=== PATIENT | female | born 1965 | race Caucasian/White ===

== ENCOUNTER 2023-06-11 08:52 | Emergency (ER) | payer OTHER, SELFPAY ==
[2023-06-11 08:59] VITALS: BP 194/105
--- NOTE | 2023-06-11 09:25 | ED.GENMED ---
History of Present Illness
General
Chief Complaint: Headache
Source: patient
Time Seen by Provider: 06/11/23 09:10
Travel History
Have you had any contact with someone who has COVID-19?: No
Do you have any symptoms of coronavirus? Fever > 100 degrees, chills, cough, shortness of breath, sore throat, loss of taste or smell, muscle aches, or headache?: No
History of Present Illness
History of Present Illness:
57-year-old female with past medical history of multiple sclerosis, hypertension, GERD presenting to the emergency department for evaluation of a global headache that began this past Sunday evening and Sunday when she states she was out at dinner
with her when she had a coughing spell that lasted for approximately 20 minutes (notes that she has gotten these types of coughing spells before which is likely attributed to her MS) but states following the coughing spell has had the
headache and has not resolved with Advil/Motrin which patient has been taking every 4-6 hours. Patient states she has never had a headache like this that has not gotten better with medications. She notes associated nausea and feels as if she has
brain fog as well. She notes the brain fog is often a MS symptom for her as well. She notes she saw her neurologist at [facility] about 2 months ago and everything was at her usual baseline and has an MRI scheduled for this coming September. Patient
does admit to a recent 'head cold' but had started feeling better over the last week. She denies any current fevers, chills, rigors, focal weakness or numbness, visual disturbances, neck pain or stiffness or any other concerns.
Past History
Past History
ED Past Medical History: GERD, HTN and Other (Multiple sclerosis)
ED Past Surgical History: None
Social History
Tobacco: Non-smoker
Alcohol: Occasional
Drug: None
Personal:
Living: with family
Employment: Employed
Review of Systems
Review of Systems
All Other Systems: ROS reviewed and negative except as documented in HPI and ROS
Phy Exam
Physical Exam
Physical Exam:
GENERAL: Alert , Appears uncomfortable and tearful
EYE: pupils equal and reactive, 3 mm bilateral, EOMI
NECK: Supple, no significant adenopathy., No meningismus
ENT: o/p clr, mmm.
CARDIAC: Regular rate and rhythm .
LUNGS: Clear breath sounds bilaterally, no acute respiratory distress, no wheezes/rales/rhonchi
NEUROLOGICAL: Alert and oriented, no focal neuro deficits, ambulates with steady gait, no ataxia, moves all extremities
SKIN: Warm and dry, skin intact.
MUSCULOSKELETAL: No edema, well perfused.
PSYCH: Normal and appropriate interaction.
Scores
Heart Failure Risk
Heart Failure Risk Score: Not Applicable
Heart Score for Chest Pain Patients
STEMI patient?: Not applicable
Withdrawal Assessment of Alcohol
Withdrawal Assessment Completed?: Not applicable
Course
Orders/Labs/Results
Orders:
Orders
06/11/23 09:20
CT Head W/o Iv Contrast Urgent
Comment:
Reason For Exam: headache, HTN, hx of MS
0.9% Sodium Chloride 1000 ml [Nss] 1,000 ml IV BOLUS
Dexamethasone Sod Phosphate [Decadron] 10 mg IV NOW STA
Diphenhydramine [Benadryl] 25 mg IV NOW STA
Metoclopramide [Reglan] 10 mg IV NOW STA
06/11/23 09:58
Basic Metabolic Panel Urgent
Complete Blood Count/With Diff Urgent
06/11/23 11:35
Ketorolac [Toradol] 30 mg IV NOW STA
06/11/23 11:57
Rizatriptan Orally Disintegrat [[employer] Analyst (Orally Disintegrating)] 10 mg PO NOW STA
Abnormal Lab Results
06/11/23
09:58
WBC 4.0 L 10^3/uL
(4.8-10.8)
Absolute Lymphs (auto) 0.5 L 10^3/uL
(1.2-3.4)
Immature Gran % 1.0 H %
(0-0.5)
Lymphocytes % 12.9 L %
(20.5-51.1)
Monocytes % 9.4 H %
(1.7-9.3)
Glucose 102 H mg/dl
(70-99)
06/11/23 09:58
06/11/23 09:58
Vital Signs
Initial and Last Documented VS:
Initial Vital Signs
Temp Pulse Resp BP Pulse Ox
99.0 F 74 16 194/105 100
06/11/23 08:59 06/11/23 08:59 06/11/23 08:59 06/11/23 08:59 06/11/23 08:59
Last Documented Vital Signs
Temp Pulse Resp BP Pulse Ox
99.0 F 74 16 144/78 99
06/11/23 08:59 06/11/23 08:59 06/11/23 08:59 06/11/23 11:00 06/11/23 10:35
MDM/Problems Addressed
Differential Diagnosis Includes:
Tension type headache, migraine headache, intracranial bleeding, MS exacerbation hypertensive urgency/emergency
MDM/Problems Addressed:
57-year-old female presenting the emergency department for evaluation of persistent headache that has been ongoing since the weekend, unrelieved with [id number] medications. Last dose of Advil was around 3 AM. Patient's blood pressure
significantly Elave on arrival here. Repeat blood pressure during my exam was 198/86 so the diastolic is certainly improved however still quite an elevated blood pressure which could be contributing to patient's symptoms. CT of the head ordered
due to the patient's elevated blood pressure as well as to rule out secondary causes of headache including intracranial bleeding. Will also treat with migraine cocktail for symptomatic relief and reassess following.
Chronic conditions affecting care: Neurological disorder
*Radiology
Radiology exam reviewed: radiology read reviewed (There is subtle low density in the left centrum semiovale. This white matter changes nonspecific and may be ischemic, degenerative or demyelinating origin. Given the patient's clinical history, this
may be related to patient's known MS.)
*Pulse Oximetry
Patient hypoxic: no
*Critical Care Note
Total Time (30-74mins, 75-104mins- exclusive of procedures): Not Applicable
Patient Management
Discussion with other providers: Senior Quality Control Inspector
Escalation/DeEscalation of care consider admission/obs:
11:30 AM: Discussed case with neurology based of patient's CT findings and presentation. She does note her headache is improved although still present, blood pressure significantly improved. Additional dose of Toradol ordered.
12 PM: Patient seen by neurology. They are ordering a dose of rizatriptan. Reassessment following. Hopeful disposition is home with outpatient follow-up.
1:15 PM: Patient's symptoms significantly improved following Toradol and Rizatriptan. She feels comfortable being discharged home. patient did attempt to contact her neurologist at [facility] but has yet to receive a call back. I did advise the
patient to try and schedule her MRI for a sooner date. I also encouraged the patient to contact her primary care physician for a follow-up to have her blood pressure checked and monitored given the elevated blood pressure today. Patient expressed
understanding as well as aware of return patient's.
ED Attending Note
-
Portions of this chart may have been created with voice recognition software.� Occasional wrong word or��sound alike� substitutions may have occurred due to the inherent limitations of voice recognition software.
Discharge Plan
Departure
Patient Disposition: Home (Routine Discharge)
Date of Disposition: 06/11/23
Time of Disposition: 13:08
Patient with high blood pressure during this ER visit?: Yes
Discharge Problem:
Headache, Hypertension
Instructions: Migraines (DC)
Referrals:
Ute Peres CRNP [Family Provider] -
Interventions
Interventions:
*Risk Screen - Suicide Last Done: 06/11/23 08:53
*General Assessment Last Done: 06/11/23 08:53
*Neglect/Abuse Screening Last Done: 06/11/23 08:53
*ED COVID-19 Vaccine History Last Done: 06/11/23 09:02
ED- Neurological Assessment Last Done: 06/11/23 08:53
[2023-06-11 09:55] VITALS: BP 178/97
[2023-06-11] MEDS: BENADRYL 25 MG IV (09:56)
[2023-06-11] MEDS: REGLAN 10 MG IV (09:57)
[2023-06-11] MEDS: DECADRON 10 MG IV (09:57)
[2023-06-11] MEDS: NSS 1000 IV (09:57)
[2023-06-11 10:00] VITALS: BP 192/84
[2023-06-11 10:07] LABS: % Basophils 0.7 % (0-2); % Eosinophils 2.7 % (0-6); % Lymphocytes 12.9 % (20.5-51.1); % Monocytes 9.4 % (1.7-9.3); % Neutrophils 73.3 % (42.2-75.2); Absolute Eosinophils 0.1 10^3/uL (0-0.7); Absolute Lymphocytes 0.5 10^3/uL (1.2-3.4); Absolute Monocytes 0.4 10^3/uL (0.1-0.6); Hematocrit 40.3 % (37.0-47.0); Hemoglobin 13.8 g/dL (12.0-16.0); Mean Corp Hgb Conc. 34.2 g/dL (33.0-37.0); Mean Corpuscular Hgb 30.9 pg (27.0-31.0); Mean Corpuscular Volume 90.4 fL (81.0-99.0); Mean Platelet Volume 10.3 fL (7.4-10.4); Nucleated Red Blood Cells % 0 %; Platelet Count 198 10^3/uL (130-400); Red Blood Cell Count 4.46 10^6/uL (4.20-5.40)
[2023-06-11 10:23] LABS: Blood Urea Nitrogen 11 mg/dl (7-17); Calcium 9.7 mg/dl (8.4-10.2); Carbon Dioxide 28 mmol/L (22-30); Chloride 105 mmol/L (98-107); Glucose 102 mg/dl (70-99); Potassium 4.2 mmol/L (3.5-5.1); Sodium 140 mmol/L (135-145); eGFR > 60.00
[2023-06-11 11:00] VITALS: BP 144/78
[2023-06-11] MEDS: TORADOL 30 MG IV (11:45)
[2023-06-11 12:00] VITALS: BP 152/96
[2023-06-11] MEDS: MAXALT MLT (ORALLY DISINTEGRATING) 10 MG PO (12:13)
[2023-06-11 13:15] VITALS: BP 148/74
--- NOTE | 2023-06-11 13:44 | CON.NEURO4 ---
Addendum entered and electronically signed by Bear Cruz MD 06/11/23 15:18:
I saw and evaluate the patient I reviewed the note by Shayy Grajeda agree the findings with the following comments:
The patient is a 57-year-old left-handed woman with a past medical history of multiple sclerosis on Vumerity who presents to the hospital with headache, photophobia, transient double vision with headache and pressure in the head starting after a
coughing fit on 06/08 in the evening.
Patient reports she is been in her normal state of health before this coughing fit but she can get occasional coughing fits spontaneously. She did not have any loss of consciousness with this episode but noticed that she had significant
holocephalic headache since then and has been taking Tylenol and ibuprofen without any improvement. She does relate a family history of migraine in her mother. Patient has not had bothersome headaches and this is a bit unusual for her. She does
note bothersome symptoms of photophobia and mild amount of nausea but no vomiting. For couple of seconds last night she had brief double vision that went away when she blinks a couple times and closed her eyes. Blood pressure was elevated in the
ER and 190/105.
Reports diagnosed with multiple sclerosis around 1991 was on Copaxone, then Gilenya and now most recently Vumerity.
Neurologic examination is unremarkable, patient gives good history, fluent speech normal mental status. Cranial nerves showed symmetric 3 mm equal round reactive light early pupils, visual omalley full, extraocular is full with no pathologic
nystagmus smile symmetric tongue is midline no dysarthria sternocleidomastoid and trapezius 5/5 bilaterally, motor function is 5/5 for shoulder abduction arm flexion hip flexion no pronator drift normal finger-nose testing and grossly intact to
light touch in upper and lower extremities for sensory exam. Gait examination normal.
CT head noncontrast with some hypoattenuation in the white matter most likely representing white matter changes of multiple sclerosis, no acute infarct or hemorrhage or mass is seen.
Assessment: Most likely migraine headache without aura probably prompted by the coughing fit. Normal neurologic examination, no red flags suggestive of MONEY MANAGER infection, CT head noncontrast normal. With no focal neurologic deficit and symptoms of
headache photophobia mild nausea would not seem at all consistent with a exacerbation of multiple sclerosis, although patient reports her flares in the past had had brain fog and cognitive changes.
Recommendations
-Try 10 mg of rizatriptan once and monitor for improvement if she shows improvement in this I think helps in diagnosing that this is most likely migraine
-If no improvement in headache then would recommend checking brain MRI with and without contrast
Original Note:
Consultation - Neurology 4
-
CONSULTING PHYSICIAN: Sameer Cruz MD
REFERRING PHYSICIAN: ER/Omer Beebe PA-C
DICTATED BY: ANNIA Vega
DATE/TIME OF REQUEST: 06/11/23
DATE/TIME OF CONSULTATION: 06/11/23
Reason for Consultation: Headache
History of Present Illness:
This is a 57-year-old left-female who has presented to the hospital with report of headache. Patient reports that she was out to dinner two nights ago on 06/09/23 when she had an extended coughing fit lasting almost 20 minutes followed by a severe
headache that is persistent. She notes having a few seconds of transient double vision last night (06/10/23). She has been taking ibuprofen with no relief of her headache, prompting her to come to the ER today for evaluation. CT head was obtained and
is suggestive of nonspecific white matter changes in the left centrum ovale. Blood pressure 194/105. Patient reports that her headache is posterior but radiates up across the top of her head. She reports photophobia and nausea, denies vomiting and
phonophobia. She reports having some mild headaches in the past but nothing similar to this. She also notes having a minor cold about two weeks ago but denies any fevers. She denies any dizziness, loss of vision, speech/swallow difficulty, numbness,
weakness, chest pain, palpitations, and shortness of breath. She received a migraine cocktail in the ER and reports minimal improvement after this.
She has multiple sclerosis and is follow by a neurologist at [facility]. She has been on Vumerity for the past 2 years. She was diagnosed with MS in 1991 and has been on Copaxone, Gilenya, and another disease modifying treatment that she can't
remember the name of. She reports that when she was first diagnosed she had some weakness, but usually her exacerbations are only brain fog/cognitive changes. She is due for her yearly MRI imaging in September.
Past Medical History: Multiple sclerosis, HTN, GERD
Surgical History: Denies.
Family History: Father- brain tumor.
Social History: Occasional alcohol. Denies tobacco and illicit drug use.
Allergies: No known allergies.
Home Medications: See below.
Review of Symptoms:
Patient denies any fever, chest pain, shortness of breath, GI or symptoms.
�Per the HPI.�All systems are reviewed negative except above.
Physical Exam:
The patient is afebrile, abdomen is nondistended, breathing is unlabored, skin is warm and dry, no edema.
Neurologic Examination:
The patient is awake, alert and oriented x 3. She is able to follow commands and answer questions appropriately. There is no aphasia or dysarthria. On cranial nerve assessment, pupils are 3 mm bilateral, round and reactive to light and
accommodation. Visual omalley are full. Extraocular movements are intact. Facial sensations are intact and bilaterally symmetrical, there is no facial asymmetry. Hearing is intact bilaterally to normal conversation volume. Tongue palate and uvula are
midline. Sternocleidomastoid strengths are full bilaterally. Motor strengths are 5/5 bilateral upper and lower extremities on medical research [place] scale. There is no drift or involuntary movement noted. There was no extinction noted on double
simultaneous stimulation. Coordination is intact by finger to nose bilaterally.
Lab Results: See below.
Neuro Imaging:
1. CT Head 06/11/23: There is subtle low density in the left centrum semiovale. This white matter changes nonspecific and may be ischemic, degenerative or demyelinating origin. Given the patient's clinical history, this may be related to patient's
known MS.
Differentials for the patient's presentation include:
1. Intractable migraine without aura likely.
2. Very low concern for MS flare, symptomatology not supportive of this and no abnormal neurological exam findings.
3. Hypertension.
Patient has the following risk factors for their symptoms: MS, headache
Recommendations:
-Provide rizatriptan 10mg x1 now.
-If no improvement in headache after rizatriptan dose, would obtain MRI brain imaging.
Discussed patient care with: Dr. Cruz, Omer Beebe PA-C
Vital Signs and Labs
-
Vital Signs and Labs:
Vital Signs
Temp Pulse Resp BP Pulse Ox
99.0 F 84 20 148/74 98
06/11/23 08:59 06/11/23 13:15 06/11/23 13:15 06/11/23 13:15 06/11/23 13:15
Lab Results
06/11/23 09:58
06/11/23 09:58
Sodium 140 mmol/L (135-145) 06/11/23 09:58
Potassium 4.2 mmol/L (3.5-5.1) 06/11/23 09:58
BUN 11 mg/dl (7-17) 06/11/23 09:58
Glucose 102 mg/dl (70-99) H 06/11/23 09:58
Calcium 9.7 mg/dl (8.4-10.2) 06/11/23 09:58
== END 2023-06-11 13:23 | disposition home or self-care (01) ==
LOC: EMR 08:52
PROVIDERS: Physician Assistant Medical; EMERGENCY PHYSICIAN Student in an Organized Health Care Education/Training Program; FAMILY PHYSICIAN Nurse Practitioner Adult Health; OTHER PHYSICIAN Student in an Organized Health Care Education/Training Program
DX: R51.9 Headache, unspecified (principal); I10 Essential (primary) hypertension; K21.9 Gastro-esophageal reflux disease without esophagitis; G35 Multiple sclerosis
CPT/HCPCS: 99284; 96374; 96375 ×3; 96361; 70450; 80048; 85025